=== PATIENT | male | born 1990 | race African-American/Black ===

== ENCOUNTER 2019-07-07 00:03 | Emergency (ER) | payer SELFPAY ==
[~2019-07-07] VITALS: Ht 175.3 cm; Wt 68.0 kg
[2019-07-07] MEDS ORDERED: IBUPROFEN 600MG TABLET PO ONE (02:45)
[2019-07-07 02:54] VITALS: BP 119/81
== END 2019-07-07 02:55 | disposition home or self-care (01) ==
LOC: ER 00:03
DX: L02.31 Cutaneous abscess of buttock (principal); F17.200 Nicotine dependence, unspecified, uncomplicated; F12.10 Cannabis abuse, uncomplicated
CPT/HCPCS: 99283